=== PATIENT | male | born 1980 | race Hispanic/Latino ===

== ENCOUNTER → 2021-03-28 | Outpatient (CLI) | payer OTHER | LOC: M LABSMTC 11:22 | PROVIDERS: ATTEND Pediatrics | DX: Z20.822 Contact with and (suspected) exposure to COVID-19 (principal); Z11.52 Encounter for screening for COVID-19 | CPT/HCPCS: C9803; U0003 ==

== ENCOUNTER 2021-04-01 11:30 | Emergency (ER) | payer OTHER ==
[~2021-04-01] VITALS: Ht 180.3 cm; Wt 115.3 kg
[2021-04-01] MEDS ORDERED: ALBUTEROL 90 MCG/ACT 8GM HFA INHALER INH SCH (15:15)
[2021-04-01] MEDS ORDERED: BENZONATATE 100MG CAPSULE PO ONE (15:15)
[2021-04-01 15:43] LABS: RSV AMPLIFICATION NEGATIVE (NEGATIVE)
[2021-04-01] MEDS ORDERED: TESS100C PO (16:01)
[2021-04-01] MEDS ORDERED: PROAAER10 INH (16:01)
[2021-04-01 16:43] VITALS: BP 143/73
== END 2021-04-01 16:56 | disposition home or self-care (01) ==
LOC: M ED 11:30
DX: U07.1 COVID-19 (principal)